=== PATIENT | female | born 1965 | race Caucasian/White ===

== ENCOUNTER → 2016-10-16 | Outpatient (CLI) | payer OTHER | END | disposition home or self-care (01) | LOC: CFH 07:23 | PROVIDERS: ATTEND Family Medicine | DX: R10.84 Generalized abdominal pain (principal); R06.02 Shortness of breath; G89.29 Other chronic pain; M54.5 Low back pain; R06.00 Dyspnea, unspecified | CPT/HCPCS: 76700 ==